=== PATIENT | male | born 1990 | race African-American/Black ===

== ENCOUNTER 2017-06-12 18:49 | Emergency (ER) | payer SELFPAY ==
[~2017-06-12] VITALS: Ht 188 cm; Wt 137.0 kg
[2017-06-12] MEDS ORDERED: LISI10TA5 PO (19:00)
[2017-06-12] MEDS ORDERED: ALBU6.7H INH (19:00)
[2017-06-12] MEDS ORDERED: HYDR25TA PO (19:01)
[2017-06-12] MEDS ORDERED: KETOROLAC 60MG/2ML VIAL IM ONE (19:45)
[2017-06-12 19:50] VITALS: BP 120/60
== END 2017-06-12 20:04 | disposition home or self-care (01) ==
LOC: ER 18:49
DX: K08.89 Other specified disorders of teeth and supporting structures (principal); I10 Essential (primary) hypertension; J45.909 Unspecified asthma, uncomplicated; F12.10 Cannabis abuse, uncomplicated
CPT/HCPCS: 96372; 99283; J1885; Z7610